=== PATIENT | male | born 1985 | race American Indian/Alaskan Native ===

== ENCOUNTER 2021-09-09 10:31 | Emergency (ER) | payer OTHER ==
[2021-09-09 10:58] VITALS: BP 160/95
--- NOTE | 2021-09-09 11:41 | XRay Report ---
RIGHT FOREARM 2 VIEWS INDICATION / CLINICAL INFORMATION: Patient fell while skating with right forearm injury and pain. COMPARISON: None available. FINDINGS: BONES / JOINT(S): No acute fracture or subluxation. No significant arthritis. SOFT TISSUES: No significant abnormality. ADDITIONAL FINDINGS: None. IMPRESSION: No acute findings. Signer Name: Terrell Curry MD Signed: 09/09/2021 11:37 AM Workstation Name: [email or web address]
--- NOTE | 2021-09-09 11:43 | XRay Report ---
RIGHT HAND 2 VIEWS INDICATION / CLINICAL INFORMATION: Patient fell while skating with right hand injury and pain. COMPARISON: None available. FINDINGS: BONES / JOINT(S): No acute fracture or subluxation. No significant arthritis. SOFT TISSUES: No significant abnormality. ADDITIONAL FINDINGS: None. IMPRESSION: No acute findings. Signer Name: Terrell Curry MD Signed: 09/09/2021 11:38 AM Workstation Name: [id number]
[2021-09-09] MEDS ORDERED: oxyCODONE /ACETAMINOPHEN 5-325MG TAB PO ONE (15:20)
[2021-09-09] MEDS ORDERED: ONDANSETRON 4 MG ODT TAB PO ONE (15:20)
[2021-09-09] MEDS ORDERED: IBUPROFEN 600 MG TAB PO ONE (15:21)
--- NOTE | 2021-09-09 15:50 | XRay Report ---
Right wrist-3 views INDICATION: Pain - wrist injury. COMPARISON: None available. IMPRESSION: No acute osseous abnormality. Normal alignment. No significant DJD. Mild generalized s oft tissue swelling about the wrist, especially the dorsum. Signer Name: Fredo Anthony MD Signed: 09/09/2021 3:45 PM Workstation Name: [email or web address]
--- NOTE | 2021-09-09 16:09 | Emergency Department Report ---
ED Upper Extremity Inj HPI - General Chief Complaint: Extremity Injury, Upper Stated Complaint: HAND INJURY Time Seen by Provider: 09/09/21 15:02 Source: patient Mode of arrival: Ambulatory Limitations: No Limitations - History of Present Illness Initial Comments: Patient is a 35-year-old -[place] male with no past medical history presents to the ED with complaint of acute onset persistent right wrist pain with swelling and right hand pain after he slipped and fell at skating [place] 24 hours ago and landed on his right wrist. Patient states that he has not been able to bear weight or perform any active range of motion of the right wrist or right hand because of pain. Patient denies head or neck injuries, dizziness, syncope, lightheadedness, loss of consciousness, back pain, hip pain, chest pain or shortness of breath, nausea and vomiting, change in vision, numbness and tingling or weakness of right and right wrist. MD Complaint: Injury to:: right (wrist pain), wrist, hand -: Sudden, hour(s) (24) Other Extremity Injury: Wrist: Right (right wrist and hand) Other Injuries: none Place: outdoors Severity scale (0 -10): 8 Improves With: rest Worsens With: movement of extremity (right wrist pain) Context: fall, direct blow, injury (fell down at a skating ring) Associated Symptoms: denies other symptoms. denies: weakness, numbness, neck pain, suspects foreign body, nausea/vomiting, heard/felt popping sensat - Related Data Previous Rx's Medication Instructions Recorded Last Taken Type Baclofen 20 mg PO Q12H PRN #20 tab 09/09/21 Unknown Rx Ibuprofen [Motrin] 800 mg PO Q8HR PRN #30 tablet 09/09/21 Unknown Rx traMADoL [Ultram] 50 mg PO Q6HR PRN #12 tablet 09/09/21 Unknown Rx Allergies Allergy/AdvReac Type Severity Reaction Status Date / Time No Known Allergies Allergy Verified 09/09/21 10:55 ED Review of Systems ROS: Stated complaint: HAND INJURY Other details as noted in HPI Constitutional: denies: chills, fever Eyes: denies: eye pain, eye discharge, vision change ENT: denies: ear pain, throat pain Respiratory: denies: cough, shortness of breath, wheezing Cardiovascular: denies: chest pain, palpitations Endocrine: no symptoms reported Gastrointestinal: denies: abdominal pain, nausea, vomiting, diarrhea Genitourinary: denies: urgency, dysuria Musculoskeletal: joint swelling (left wrist ), arthralgia (left wrist pain, swelling). denies: back pain Skin: denies: rash, lesions Neurological: denies: headache, weakness, paresthesias Psychiatric: denies: anxiety, depression Hematological/Lymphatic: denies: easy bleeding, easy bruising ED Past Medical Hx - Medications Home Medications: Home Medications Medication Instructions Recorded Confirmed Last Taken Type Baclofen 20 mg PO Q12H PRN #20 tab 09/09/21 Unknown Rx Ibuprofen [Motrin] 800 mg PO Q8HR PRN #30 tablet 09/09/21 Unknown Rx traMADoL [Ultram] 50 mg PO Q6HR PRN #12 tablet 09/09/21 Unknown Rx ED Physical Exam - General Limitations: No Limitations General appearance: alert, in no apparent distress - Head Head exam: Present: atraumatic, normocephalic, normal inspection - Eye Eye exam: Present: normal appearance, PERRL, EOMI Pupils: Present: normal accommodation - ENT ENT exam: Present: normal exam, normal orophraynx, mucous membranes moist, TM's normal bilaterally, normal external ear exam - Neck Neck exam: Present: normal inspection, full ROM. Absent: tenderness - Respiratory Respiratory exam: Present: normal lung sounds bilaterally. Absent: respiratory distress, wheezes, rales, rhonchi, chest wall tenderness, accessory muscle use, prolonged expiratory - Cardiovascular Cardiovascular Exam: Present: regular rate, normal rhythm, normal heart sounds. Absent: systolic murmur, diastolic murmur, rubs, gallop - GI/Abdominal GI/Abdominal exam: Present: soft, normal bowel sounds. Absent: distended, tenderness, guarding, rebound, hyperactive bowel sounds, hypoactive bowel sounds, organomegaly, mass - Rectal Rectal exam: Present: deferred - Extremities Exam Extremities exam: Present: normal inspection, tenderness (Palpable right wrist and right hand tenderness with swelling on right wrist and limited range of motion due to pain), normal capillary refill, joint swelling. Absent: full ROM (Palpable right wrist and hand tenderness with swelling), pedal edema, calf tenderness - Back Exam Back exam: Present: normal inspection, full ROM. Absent: tenderness, CVA tenderness (R), CVA tenderness (L), muscle spasm, paraspinal tenderness, jailyn tebral tenderness - Neurological Exam Neurological exam: Present: alert, oriented X3, CN II-XII intact, normal gait, reflexes normal - Psychiatric Psychiatric exam: Present: normal affect, normal mood - Skin Skin exam: Present: warm, dry, intact, normal color. Absent: rash ED Course Vital Signs 09/09/21 10:56 Temperature 98.9 F Pulse Rate 88 Respiratory 16 Rate Blood Pressure 160/95 [Left] O2 Sat by Pulse 97 Oximetry ED Medical Decision Making - Radiology Data Radiology results: report reviewed, image reviewed [facility] [address] [place] [address] XRay Report Signed Patient: BART PAN MR# : [id number] : 1985 Acct:[id number] Age/Sex: 35 / M ADM Date: 09/09/21 Loc: ED Attending Dr: Ordering Physician: ED MD DEVIN Date of Service: 09/09/21 Procedure(s): XR forearm RT Accession Number(s): [id number] cc: ED DOC, Fluoro Time In Minutes: RIGHT FOREARM 2 VIEWS INDICATION / CLINICAL INFORMATION: Patient fell while skating with right forearm injury and pain. COMPARISON: None available. FINDINGS: BONES / JOINT(S): No acute fracture or subluxation. No significant arthritis. SOFT TISSUES: No significant abnormality. ADDITIONAL FINDINGS: None. IMPRESSION: No acute findings. Signer Name: Terrell Curry MD Signed: 09/09/2021 11:37 AM Workstation Name: [id number] Transcribed By: RT Dictated By: Terrell Curry MD Electronically Authenticated By: Terrell Curry MD Signed Date/Time: 09/09/211136 DD/ 35 TD/TT: [address] [address] XRay Report Signed Patient: BART PAN MR# : [id number] : 1985 Acct:[id number] Age/Sex: 35 / M ADM Date: 09/09/21 Loc: ED Attending Dr: Ordering Physician: AMANDA BAILEY Date of Service: 09/09/21 Procedure(s): XR wrist 3+V RT Accession Number(s): [id number] cc: AMANDA BAILEY Fluoro Time In Minutes: Right wrist-3 views INDICATION: Pain - wrist injury. COMPARISON: None available. IMPRESSION: No acute osseous abnormality. Normal alignment. No significant DJD. Mild generalized soft tissue swelling about the wrist, especially the dorsum. Signer Name: Fredo Anthony MD Signed: 09/09/2021 3:45 PM Workstation Name: [id number] Transcribed By: PATTI Dictated By: Fredo Anthony MD Electronically Authenticated By: Fredo Anthony MD Signed Date/Time: 09/09/211544 DD/ 43 TD/TT: ------- [address] [address] XRay Report Signed Patient: BART PAN MR# : [id number] : 1985 Acct:[id number] Age/Sex: 35 / M ADM Date: 09/09/21 Loc: ED Attending Dr: Ordering Physician: CODY BELTRAN MD Date of Service: 09/09/21 Procedure(s): XR hand 2V RT Accession Number(s): [id number] cc: ED MD DEVIN Fluoro Time In Minutes: RIGHT HAND 2 VIEWS INDICATION / CLINICAL INFORMATION: Patient fell while skating with right hand injury and pain. COMPARISON: None available. FINDINGS: BONES / JOINT(S): No acute fracture or subluxation. No significant arthritis. SOFT TISSUES: No significant abnormality. ADDITIONAL FINDINGS: None. IMPRESSION: No acute findings. Signer Name: Terrell Curry MD Signed: 09/09/2021 11:38 AM Workstation Name: [id number] Transcribed By: RT Dictated By: Terrell Curry MD Electronically Authenticated By: Terrell Curry MD Signed Date/Time: 09/09/211137 DD/ 36 TD/TT: - Medical Decision Making This is a 35-year-old -[place] male with no past medical history presents to the ED with complaint of acute onset persistent right wrist pain with swelling and right hand pain after he slipped and fell at [employer] 24 hours ago and landed on his right wrist. Patient states that he has not been able to bear weight or perform any active range of motion of the right wrist or right hand because of pain. In the ED, patient is alert and oriented x3 and is not in any distress but appears to be in significant pain. Patient was treated for pain in the ED. Right wrist, right hand and right forearm x-rays showed no acute fractures or subluxations. Patient right wrist and hand was splinted with a Velcro splint and on reevaluation, patient is neurovascularly intact on the right wrist and right hand following the application of the Velcro splint. Patient was discharged home on pain medications and advised to follow-up with his primary care physician in 7 to 10 days for reevaluation or return to the ED immediately if symptoms get worse. - Differential Diagnosis Hand sprain; wrist fracture; wrist sprain; hand contusion; Critical care attestation.: If time is entered above; I have spent that time in minutes in the direct care of this critically ill patient, excluding procedure time. ED Disposition Clinical Impression: Contusion of right forearm, initial encounter Sprain of right wrist Qualifiers: Encounter type: initial encounter Qualified Code(s): S63.501A - Unspecified sprain of right wrist, initial encounter Contusion of right hand Qualifiers: Encounter type: initial encounter Qualified Code(s): S60.221A - Contusion of right hand, initial encounter Disposition: HOME / SELF CARE / HOMELESS Is pt being admited?: No Does the pt Need Aspirin: No Condition: Stable Instructions: Hand Contusion, [id number], Intermetacarpal Sprain, Wrist Sprain, Adult Additional Instructions: The right wrist, right hand, and right forearm x-ray showed no acute fractures or subluxations. Therefore your injuries are musculoskeletal following the fall 2020 4 hours ago. Therefore take medications with food, drink plenty of fluids and follow-up with your primary care physician in 7 to 10 days for reevaluat ion. Return to the ED immediately if symptoms get worse Prescriptions: Baclofen 20 mg PO Q12H PRN #20 tab PRN Reason: Muscle Spasm Ibuprofen [Motrin] 800 mg PO Q8HR PRN #30 tablet PRN Reason: Pain , Severe (7-10) traMADoL [Ultram] 50 mg PO Q6HR PRN #12 tablet PRN Reason: Pain Referrals: [facility] [Provider Group] - 7-10 days Forms: Work/School Release Form(ED) Time of Disposition: 16:20 Print Language: TRINIDADIAN
== END 2021-09-09 17:20 | disposition home or self-care (01) ==
LOC: ED 10:31
DX: S50.11XA Contusion of right forearm, initial encounter (principal); S60.221A Contusion of right hand, initial encounter; S63.501A Unspecified sprain of right wrist, initial encounter; W19.XXXA Unspecified fall, initial encounter; Y93.89 Activity, other specified; Y92.89 Other specified places as the place of occurrence of the external cause; Y99.8 Other external cause status
CPT/HCPCS: 99283; J3490; Q0162